=== PATIENT | female | born 1985 | race Asian ===

== ENCOUNTER 2020-04-07 13:51 | Emergency (ER) | payer OTHER, MEDICAID ==
[~2020-04-07] VITALS: Ht 157.5 cm; Wt 63.5 kg
[2020-04-07 14:00] VITALS: BP 110/67
== END 2020-04-07 16:07 | disposition home or self-care (01) ==
LOC: ER 13:51
DX: S16.1XXA Strain of muscle, fascia and tendon at neck level, initial encounter (principal); S39.012A Strain of muscle, fascia and tendon of lower back, initial encounter; K21.9 Gastro-esophageal reflux disease without esophagitis; V49.9XXA Car occupant (driver) (passenger) injured in unspecified traffic accident, initial encounter; Y93.89 Activity, other specified; Y92.89 Other specified places as the place of occurrence of the external cause; Y99.8 Other external cause status
CPT/HCPCS: 72040